=== PATIENT | female | born 1980 | race American Indian/Alaskan Native ===

== ENCOUNTER 2016-12-25 08:45 | Emergency (ER) | payer MEDICAID ==
[2016-12-25 09:35] LABS: Basophils % (Auto) 0.6 % (0.0-1.8); Eosinophils % (Auto) 3.7 % (0.0-4.3); Hemoglobin 13.1 gm/dl (10.1-14.3); Mean Corpuscular HGB Conc 32 % (30-34); Mean Corpuscular Hemoglobin 29 pg (28-32); Mean Corpuscular Volume 89 fl (79-97); Platelet Count 229 K/mm3 (140-440); Red Blood Count 4.58 M/mm3 (3.65-5.03); Red Cell Distribution Width 13.3 % (13.2-15.2); White Blood Count 11.1 K/mm3 (4.5-11.0)
[2016-12-25 09:50] LABS: Anion Gap 16 mmol/L; BUN/Creatinine Ratio 11.25; Blood Urea Nitrogen 9 mg/dL (7-17); Calcium 9.3 mg/dL (8.4-10.2); Carbon Dioxide 24 mmol/L (22-30); Chloride 104.3 mmol/L (98-107); Glucose 99 mg/dL (65-100); Sodium 140 mmol/L (137-145)
--- NOTE | 2016-12-25 12:23 | Emergency Department Report ---
HPI - General Chief Complaint: Chest Pain Time Seen by Provider: 12/25/16 11:50 - HPI HPI: Chief complaint: Chest pain, aching all over, vertigo HPI: Patient is a 38-year-old female with a history of hypertension and smokes complains of anterior upper burning tightness to her chest comes and goes over the last 3 days lasting approximately 1 minute. Nothing makes the pain better or worse. Patient states she is aching all over and has a sensation of spinning from time to time. Patient occasionally has nausea but is not related to the spinning. Patient denies a headache, upper respiratory symptoms or productive cough. Patient is status post hysterectomy and has never had a DVT. Patient's family history of grandparents with heart attacks but both parents who are in their 50s and 60s never had heart attacks. Patient takes nifedipine 30 mg daily for her blood pressure states recently she's noticed that it is been higher than usual. Mode of arrival: [private car Source: [Patient] Began: 3 days ago Duration: One minute Context: See above Quality: See above Severity: 5 out of 10 Improved with: Nothing Worsened with: Nothing Associated signs and symptoms: See above with no vomiting or diarrhea, no URI symptoms, no headache or cough Male no, age no, hypertension yes, diabetes no, obesity yes, elevated cholesterol ni, smoker yes, cocaine use no, family history of coronary artery disease grandparent, ED Past Medical Hx - Past Medical History Hx Hypertension: Yes (noncompliance) Additional medical history: ulcerative colitis, AV heart block - Surgical History Additional Surgical History: hysterectomy, salivary tumor removal - Social History Smoking Status: Current Every Day Smoker Substance Use Type: Prescribed - Medications Home Medications: Home Medications Medication Instructions Recorded Confirmed Last Taken Type NIFEdipine [NIFEdipine XL] 30 mg PO QDAY #30 tab.er.[id number] 03/01/14 01/18/15 Rx Cephalexin [Keflex] 500 mg PO QID #28 capsule 10/01/16 Unknown Rx Cyclobenzaprine HCl [Flexeril 5 MG 5 mg PO TID #12 tab 10/01/16 Unknown Rx TAB] Ibuprofen [Motrin 600 MG tab] 600 mg PO Q8H PRN #20 tablet 12/25/16 Unknown Rx NIFEdipine XL [Procardia Xl] 60 mg PO QDAY #30 tablet 12/25/16 Unknown Rx ED Review of Systems ROS: Stated complaint: CHEST PAIN /PAIN ALL OVER/DIZZINESS Other details as noted in HPI ROS Constitutional: No fever ENT: No uri symptoms Cardiovascular: chest pain Respiratory: No sob or cough GI: No vomiting or diarrhea : No dysuria frequency or urgency, Skin: No rash Neuro: No focal weakness or numbness Psych: No depression John/lymph: No edema Physical Exam - Physical Exam Vital Signs: Vital Signs 12/25/16 08:51 Temperature 98.3 F Pulse Rate 95 H Respiratory 20 Rate Blood Pressure 158/111 O2 Sat by Pulse 100 Oximetry Physical Exam: GENERAL: The patient is well-developed well-nourished . HEENT: Normocephalic. Atraumatic. Extraocular motions are intact. Patient has moist mucous membranes. Patient with slight right beating nystagmus. TMs within normal limits. NECK: Supple. No meningitic signs are noted. There is no adenopathy noted. CHEST/LUNGS: Clear to auscultation. There is no respiratory distress noted. HEART/CARDIOVASCULAR: Regular. There is no tachycardia. There is no gallop rub or murmur. ABDOMEN: Abdomen is soft, nontender. Patient has normal bowel sounds. There is no abdominal distention. SKIN: There is no rash. There is no edema. There is no diaphoresis. NEURO: The patient is awake, alert, and oriented. The patient is cooperative. The patient has no focal neurologic deficits. The patient has normal speech. MUSCULOSKELETAL: There is no tenderness or deformity. There is no limitation range of motion. There is no evidence of acute injury. ED Course Vital Signs 12/25/16 08:51 Temperature 98.3 F Pulse Rate 95 H Respiratory 20 Rate Blood Pressure 158/111 O2 Sat by Pulse 100 Oximetry ED Medical Decision Making - Lab Data Result diagrams: 12/25/16 09:19 12/25/16 09:19 Urinalysis within normal limits. Laboratory Tests 12/25/16 12/25/16 09:19 12:54 Calcium 9.3 Troponin T < 0.010 < 0.010 - EKG Data -: EKG Interpreted by Me EKG shows normal: sinus rhythm Rate: normal (70) - EKG Data When compared to previous EKG there are: no significant change Interpretation: normal EKG - Radiology Data interpreted by me: Chest x-ray shows no acute process. Critical care attestation.: If time is entered above; I have spent that time in minutes in the direct care of this critically ill patient, excluding procedure time. ED Disposition Clinical Impression: Atypical chest pain, Essential hypertension Labyrinthitis Qualifiers: Laterality: unspecified laterality Qualified Code(s): H83.09 - Labyrinthitis, unspecified ear Disposition: DISCHARGED TO HOME OR SELFCARE Is pt being admited?: No Does the pt Need Aspirin: No Condition: Stable Instructions: Chest Pain (ED), Hypertension (ED) Additional Instructions: Take nifedipine 60 mg XL instead of the 30 mg XL. Follow-up with your primary care doctor within the week for blood pressure recheck. Prescriptions: Ibuprofen [Motrin 600 MG tab] 600 mg PO Q8H PRN #20 tablet PRN Reason: Pain NIFEdipine XL [Procardia Xl] 60 mg PO QDAY #30 tablet Referrals: PRIMARY CARE, [Primary Care Provider] - 3-5 Days Time of Disposition: 13:55
--- NOTE | 2016-12-25 13:03 | XRay Report ---
ROUTINE CHEST, TWO VIEWS: HISTORY: chest pain. The trachea, heart, mediastinal contour, lung gallagher and bony thorax are unremarkable. IMPRESSION: Unremarkable chest x-ray.
[2016-12-25] MEDS ORDERED: MOTRIN PO ONE ×2 (13:06→14:02)
[2016-12-25 13:38] LABS: Bilirubin,Urine NEG (Negative); Blood,Urine NEG (Negative); Ketones,Urine NEG (Negative); Leukocyte Esterase,Urine NEG (Negative); Mucus,Urine FEW /HPF; Nitrite,Urine NEG (Negative); Protein,Urine <15 mg/dL mg/dL (Negative); Urobilinogen,Urine < 2.0 mg/dL (<2.0)
[2016-12-25 14:29] VITALS: BP 155/104
== END 2016-12-25 14:28 | disposition home or self-care (01) ==
LOC: ED 08:45
DX: R07.89 Other chest pain (principal); H83.01 Labyrinthitis, right ear; I10 Essential (primary) hypertension; F17.200 Nicotine dependence, unspecified, uncomplicated; Z90.710 Acquired absence of both cervix and uterus
CPT/HCPCS: 36415; 71020; 80048; 81001; 84484; 85025; 93005; 93010; 99285

== ENCOUNTER 2017-05-24 15:21 | Emergency (ER) | payer MEDICAID ==
[2017-05-24 15:58] VITALS: BP 149/101
[2017-05-24 16:58] LABS: Bilirubin,Urine NEG (Negative); Blood,Urine NEG (Negative); Ketones,Urine NEG (Negative); Leukocyte Esterase,Urine NEG (Negative); Mucus,Urine 2+ /HPF; Nitrite,Urine NEG (Negative); Protein,Urine <15 mg/dL mg/dL (Negative); Urobilinogen,Urine < 2.0 mg/dL (<2.0)
[2017-05-24 17:04] LABS: Hematocrit 40.5 % (30.3-42.9); Hemoglobin 13.2 gm/dl (10.1-14.3); Mean Corpuscular HGB Conc 33 % (30-34); Mean Corpuscular Hemoglobin 29 pg (28-32); Mean Corpuscular Volume 88 fl (79-97); Platelet Count 246 K/mm3 (140-440); Red Blood Count 4.59 M/mm3 (3.65-5.03); Red Cell Distribution Width 13.6 % (13.2-15.2); White Blood Count 13.3 K/mm3 (4.5-11.0)
[2017-05-24 17:52] LABS: Blastocytes % (Manual) 0 %
[2017-05-24 17:53] LABS: Anisocytosis 1+; Diff Status Complete; Platelet Estimate Consistent w Auto; Poikilocytosis 1+
[2017-05-24 18:33] LABS: Anion Gap 16 mmol/L; Blood Urea Nitrogen 8 mg/dL (7-17); Carbon Dioxide 27 mmol/L (22-30); Chloride 102.7 mmol/L (98-107); Creatine Kinase 144 units/L (30-135); Glucose 91 mg/dL (65-100); Potassium 4.2 mmol/L (3.6-5.0); Sodium 141 mmol/L (137-145)
[2017-05-24 18:42] LABS: Creatine Kinase MB < 1.0 ng/mL (0.0-4.0)
--- NOTE | 2017-05-26 10:59 | ED Elopement Review ---
ED Pt Elopement review - Results review Lab results: Laboratory Tests 05/24/17 05/24/17 05/24/17 16:02 16:14 16:14 WBC 13.3 H RBC 4.59 Hgb 13.2 Hct 40.5 MCV 88 MCH 29 MCHC 33 RDW 13.6 Plt Count 246 Lymph # Vertical Contour Band Saw Operator Add Manual Diff Complete Total Counted 100 Seg Neuts % (Manual) 62.0 Band Neutrophils % 0 Lymphocytes % (Manual) 31.0 Reactive Lymphs % (Man) 0 Monocytes % (Manual) 2.0 Eosinophils % (Manual) 4.0 Basophils % (Manual) 1.0 Metamyelocytes % 0 Myelocytes % 0 Promyelocytes % 0 Blast Cells % 0 Nucleated RBC % Not Reportable Seg Neutrophils # Man 8.2 H Band Neutrophils # 0.0 Lymphocytes # (Manual) 4.1 Abs React Lymphs (Man) 0.0 Monocytes # (Manual) 0.3 Eosinophils # (Manual) 0.5 H Basophils # (Manual) 0.1 Metamyelocytes # 0.0 Myelocytes # 0.0 Promyelocytes # 0.0 Blast Cells # 0.0 WBC Morphology Not Reportable Hypersegmented Neuts Not Reportable Hyposegmented Neuts Not Reportable Hypogranular Neuts Not Reportable Smudge Cells Not Reportable Toxic Granulation Not Reportable Toxic Vacuolation Not Reportable Dohle Bodies Not Reportable Pelger-Huet Anomaly Not Reportable Berry Rods Not Reportable Platelet Estimate Consistent w auto Clumped Platelets Not Reportable Plt Clumps, EDTA Not Reportable Large Platelets Not Reportable Giant Platelets Not Reportable Platelet Satelliting Not Reportable Plt Morphology Comment Not Reportable RBC Morphology Not Reportable Dimorphic RBCs Not Reportable Polychromasia Not Reportable Hypochromasia Not Reportable Poikilocytosis 1+ Anisocytosis 1+ Microcytosis Not Reportable Macrocytosis Not Reportable Spherocytes Not Reportable Pappenheimer Bodies Not Reportable Sickle Cells Not Reportable Target Cells Not Reportable Tear Drop Cells Not Reportable Ovalocytes Not Reportable Helmet Cells Not Reportable [place] Bodies Not Reportable [place] Rings Not Reportable Todd Cells Not Reportable Bite Cells Not Reportable Crenated Cell Not Reportable Elliptocytes Not Reportable Acanthocytes (Spur) Not Reportable Rouleaux Not Reportable Hemoglobin C Crystals Not Reportable Schistocytes Not Reportable Malaria parasites Not Reportable Roc Bodies Not Reportable Hem Pathologist Commnt No Sodium 141 Potassium 4.2 Chloride 102.7 Carbon Dioxide 27 Anion Gap 16 BUN 8 Creatinine 0.8 Estimated GFR > 60 BUN/Creatinine Ratio 10.00 Glucose 91 POC Glucose 96 Calcium 9.0 Total Creatine Kinase 144 H CK-MB (CK-2) < 1.0 CK-MB (CK-2) Rel Index 0.6 Urine Color Urine Turbidity Urine pH Ur Specific [place] Urine Protein Urine Glucose (UA) Urine Ketones Urine Blood Urine Nitrite Urine Bilirubin Urine Urobilinogen Ur Leukocyte Esterase Urine WBC (Auto) Urine RBC (Auto) U Epithel Cells (Auto) Urine Mucus 05/24/17 16:17 WBC RBC Hgb Hct MCV MCH MCHC RDW Plt Count Lymph # Add Manual Diff Total Counted Seg Neuts % (Manual) Band Neutrophils % Lymphocytes % (Manual) Reactive Lymphs % (Man) Monocytes % (Manual) Eosinophils % (Manual) Basophils % (Manual) Metamyelocytes % Myelocytes % Promyelocytes % Blast Cells % Nucleated RBC % Seg Neutrophils # Man Band Neutrophils # Lymphocytes # (Manual) Abs React Lymphs (Man) Monocytes # (Manual) Eosinophils # (Manual) Basophils # (Manual) Metamyelocytes # Myelocytes # Promyelocytes # Blast Cells # WBC Morphology Hypersegmented Neuts Hyposegmented Neuts Hypogranular Neuts Smudge Cells Toxic Granulation Toxic Vacuolation Dohle Bodies Pelger-Huet Anomaly Berry Rods Platelet Estimate Clumped Platelets Plt Clumps, EDTA Large Platelets Giant Platelets Platelet Satelliting Plt Morphology Comment RBC Morphology Dimorphic RBCs Polychromasia Hypochromasia Poikilocytosis Anisocytosis Microcytosis Macrocytosis Spherocytes Pappenheimer Bodies Sickle Cells Target Cells Tear Drop Cells Ovalocytes Helmet Cells [place] Bodies [place] Rings Todd Cells Bite Cells Crenated Cell Elliptocytes Acanthocytes (Spur) Rouleaux Hemoglobin C Crystals Schistocytes Malaria parasites Roc Bodies Hem Pathologist Commnt Sodium Potassium Chloride Carbon Dioxide Anion Gap BUN Creatinine Estimated GFR BUN/Creatinine Ratio Glucose POC Glucose Calcium Total Creatine Kinase CK-MB (CK-2) CK-MB (CK-2) Rel Index Urine Color Yellow Urine Turbidity Clear Urine pH 6.0 Ur Specific [place] 1.017 Urine Protein <15 mg/dl Urine Glucose (UA) Neg Urine Ketones Neg Urine Blood Neg Urine Nitrite Neg Urine Bilirubin Neg Urine Urobilinogen < 2.0 Ur Leukocyte Esterase Neg Urine WBC (Auto) 4.0 Urine RBC (Auto) 4.0 U Epithel Cells (Auto) 8.0 Urine Mucus 2+ - Call Back decision Pt Call Back Decision: No action required
== END 2017-05-24 23:45 | disposition left against medical advice (07) ==
LOC: ED 15:21
DX: R11.2 Nausea with vomiting, unspecified (principal); Z53.21 Procedure and treatment not carried out due to patient leaving prior to being seen by health care provider
CPT/HCPCS: 36415; 80048; 81001; 82550; 82553; 82962; 85007; 85025